=== PATIENT | male | born 1965 | race Caucasian/White ===

== ENCOUNTER 2021-03-31 06:10 | Day surgery (SDC) | payer OTHER ==
[~2021-03-31] VITALS: Ht 172.7 cm; Wt 99.8 kg
[2021-03-31] MEDS ORDERED: fentaNYL citrate 0.05 MG/ML VIAL ONE (08:20)
[2021-03-31] MEDS ORDERED: LIDOCAINE 2% 100 MG/5 ML UJET TP ONE (08:20)
[2021-03-31] MEDS ORDERED: MIDAZOLAM 5 MG/5 ML VIAL ONE (08:20)
[2021-03-31] MEDS ORDERED: SIMETHICONE 40 MG/0.6 ML ONE ×2 (09:20)
[2021-03-31] MEDS ORDERED: MIDAZOLAM 2 MG/2 ML VIAL IVP ONE (09:50)
[2021-03-31] MEDS ORDERED: fentaNYL citrate 0.05 MG/ML VIAL IVP ONE (09:50)
== END 2021-03-31 09:41 | disposition home or self-care (01) ==
LOC: MDS 06:10 → MMU 06:14 → MDS 09:41
PROVIDERS: ATTEND Internal Medicine Gastroenterology
DX: Z12.11 Encounter for screening for malignant neoplasm of colon (principal); K57.30 Diverticulosis of large intestine without perforation or abscess without bleeding; K20.90 Esophagitis, unspecified without bleeding; K64.8 Other hemorrhoids; K44.9 Diaphragmatic hernia without obstruction or gangrene; R09.3 Abnormal sputum; E11.9 Type 2 diabetes mellitus without complications; Z79.84 Long term (current) use of oral hypoglycemic drugs; Z79.899 Other long term (current) drug therapy
CPT/HCPCS: 43235; 45378; J2250; J3010